=== PATIENT | male | born 1970 | race Caucasian/White ===

== ENCOUNTER 2022-01-04 14:42 | Emergency (ER) | payer OTHER, SELFPAY ==
[2022-01-04 14:54] VITALS: BP 134/78; PULSE 79; RESP 16; TEMP 36.8; O2SAT 97; BMI 35.9
--- NOTE | 2022-01-04 15:22 | ED_ITS ---
HPI - Allergic Reaction <WANG Samuels - Last Filed: 01/04/22 15:55> General Chief complaint: Allergic Reaction Stated complaint: Multiple yellow jacket stings Time Seen by Provider: 01/04/22 15:18 Source: patient Mode of arrival: Ambulatory History of Present Illness HPI narrative: 51-year-old male, nonsmoker, presents emergency department following yellow jacket stings. Patient was walking along [facility] when his walking stick jostled a hornets nest and he was stung 3 times on the right knee and right hand. Patient recalls a reaction of arm swelling as a 9-year-old child and does not recall if that was a anaphylactic reaction. Patient denies any point of having difficulty breathing or sensation of throat closing. Patient's drove him over to the emergency department. Related Data Allergies Allergy/AdvReac Type Severity Reaction Status Date / Time codeine AdvReac Nausea Verified 01/04/22 14:58 Review of Systems <WANG Samuels - Last Filed: 01/04/22 15:55> Review of Systems Narrative: Narrative: GENERAL: Denies chills, fatigue, fever, sweats. See HPI HEENT: Denies sinus pain, ear pain, sore throat, difficulty swallowing, dizziness. RESPIRATORY: Denies dyspnea, cough, wheezing, sputum. CARDIOVASCULAR: Denies chest pain, palpitations, edema. GASTROINTESTINAL: Denies nausea, vomiting, abdominal pain, diarrhea, constipation. : Denies dysuria, frequency, incontinence, hematuria, urinary retention, flank pain. MSK: Denies weakness, joint pain, or bony pain. SKIN: Endorses redness, swelling and itching of right knee and right hand where he was stung. NEUROLOGIC: Denies weakness, dizziness, headache, numbness, confusion. PSYCHIATRIC: No concerning psychosocial issues. Patient History <WANG Samuels - Last Filed: 01/04/22 15:55> Social History Smoking Status: Never smoker Smoking Status: Never smoker alcohol intake frequency: holidays/special occasions only Substance Use Type: does not use Exam <WANG Samuels - Last Filed: 01/04/22 15:55> Narrative Exam Narrative: Exam Narrative: GENERAL: This is a well-nourished, well-developed patient, in no acute distress HEAD: Atraumatic. Normocephalic. EYES: Pupils equal round and reactive. Extraocular motions intact. No scleral icterus, injection or drainage. ENT: Nose without bleeding, purulent drainage. Throat without erythema, tonsillar hypertrophy or exudate. Airway patent. NECK: Trachea midline. No JVD or lymphadenopathy. Nontender. CARDIOVASCULAR: Regular rate and rhythm without murmurs, peripheral pulses intact, cap refill <2 sec. RESPIRATORY: Breath sounds equal and clear bilaterally. No wheezes, rales, or rhonchi. No cough. No increased respiratory effort. No accessory muscle use. GASTROINTESTINAL: Abdomen soft, non-tender, nondistended without guarding or rebound. No suprapubic pain. MSK: Moves all extremities. Normal range of motion, no clubbing or edema. Neurovascularly intact. NEURO: A&O x 3. SKIN: 3 areas mild redness and swelling anterior and posterior of the right knee and right hand dorsum. Tweezers head lamp used to investigate and any remaining stingers. Initial Vital Signs Initial Vital Signs: Vital Signs Temperature 98.2 F 01/04/22 14:54 Pulse Rate 79 01/04/22 14:54 Respiratory Rate 16 01/04/22 14:54 Blood Pressure 134/78 01/04/22 14:54 Pulse Oximetry 97 01/04/22 14:54 Oxygen Delivery Method 01/04/22 14:54 Reviewed <Fiona Gore DO - Last Filed: 01/05/22 07:49> Initial Vital Signs Initial Vital Signs: Vital Signs Temperature 98.2 F 01/04/22 14:54 Pulse Rate 79 01/04/22 14:54 Respiratory Rate 16 01/04/22 14:54 Blood Pressure 134/78 01/04/22 14:54 Pulse Oximetry 97 01/04/22 14:54 Oxygen Delivery Method 01/04/22 14:54 Course <WANG Samuels - Last Filed: 01/04/22 15:55> Vital Signs Vital signs: Vital Signs - 8 hr 01/04/22 14:54 Temperature 98.2 F Pulse Rate 79 Respiratory Rate 16 Blood Pressure 134/78 Pulse Oximetry 97 Oxygen Delivery Method Room Air <Fiona Gore DO - Last Filed: 01/05/22 07:49> Vital Signs Vital signs: Vital Signs - 8 hr 01/04/22 14:54 Temperature 98.2 F Pulse Rate 79 Respiratory Rate 16 Blood Pressure 134/78 Pulse Oximetry 97 Oxygen Delivery Method Room Air MDM - Allergic Reaction <Raji MontoyaWANG tan - Last Filed: 01/04/22 15:55> Differential Diagnosis Differential diagnosis: Likely other (Bee sting reaction) and urticaria MDM Narrative Medical decision making narrative: 51-year-old male that received 3 bee stings while hiking approximately 1 hour ago. Patient denies any difficulty breathing or sensation of throat closing but did take 25 mg of Benadryl darius. Assessment was unremarkable. History of localized reaction but no anaphylaxis. After observation, patient reports that he is feeling well with no adverse reactions. Discussed return precautions with patient, was agreeable with course of action. Discharge Plan Departure Patient Disposition: Home Clinical Impression: Bee sting reaction Instructions: DI for Anaphylaxis Activity Restrictions/Additional Instructions: *You have been diagnosed with localized reaction to a bee sting. He did not have any symptoms of anaphylaxis at this time, but please return to the emergency department if at any point he develops difficulty breathing or sensation that her throat is closing. He may take Benadryl every 6 hours as needed for itching and swelling. Otherwise, take ibuprofen Tylenol as needed for discomfort. Please follow-up with your family doctor as needed. *What to do: *Please continue to take your regular medications as directed. [ ] New medication prescriptions sent to your pharmacy: [ ] [ ] New medication written as a paper prescription [x ] No new medications given *Please follow up with your primary care provider in 2-3 days, call for an appointment. Let them know you were seen in the Emergency Department and that we ask that you be seen in follow up. We will electronically transmit a record of today's note if your PCP is in our system *If you do not have a primary care provider please contact the [facility] Resource line at [phone]. They will ask some questions about your medical history and help get you set up with a doctor in the community. ? Return to ER if you should have any new, worsening or concerning symptoms, such as worsening pain, severe headache, confusion, chest pain, difficulty breathing, fever greater than 101 F, shaking chills, persistent vomiting to the point that you cannot drink fluids, or other new or worsening symptoms. Visit Report Forms: Patient Portal/API <Fiona Botnick, - Last Filed: 01/05/22 07:49> Cosign ED Attending Cosignature Attestation: I was immediately available in the department for consultation. Documentation has been reviewed. I agree with assessment and plan.
== END 2022-01-04 15:50 | disposition home or self-care (01) ==
PROVIDERS: Emergency Provider Registered Nurse
DX: T63.441A Toxic effect of venom of bees, accidental (unintentional), initial encounter (principal)
CPT/HCPCS: 99281